=== PATIENT | male | born 1995 | race Two or more races ===

== ENCOUNTER 2022-03-06 17:00 | Emergency (ER) | payer SELFPAY ==
[~2022-03-06] VITALS: Ht 167.6 cm; Wt 81.8 kg
[2022-03-06 20:35] VITALS: BP 132/71
== END 2022-03-06 20:45 | disposition home or self-care (01) ==
LOC: EMS 17:07
DX: T18.9XXA Foreign body of alimentary tract, part unspecified, initial encounter (principal); F10.20 Alcohol dependence, uncomplicated; F17.210 Nicotine dependence, cigarettes, uncomplicated; X58.XXXA Exposure to other specified factors, initial encounter; Y93.89 Activity, other specified; Y92.89 Other specified places as the place of occurrence of the external cause; Y99.8 Other external cause status
CPT/HCPCS: 70490; 99284; Z7502

== ENCOUNTER 2023-12-25 12:35 | Emergency (ER) | payer MEDICAID ==
[~2023-12-25] VITALS: Ht 165.1 cm; Wt 79.5 kg
[2023-12-25 12:47] VITALS: TEMP 98
[2023-12-25] MEDS: CEPHALEXIN MONOHYDRATE 500 MG CAPSULE PO ONE (13:22)
[2023-12-25] MEDS: IBUPROFEN 600 MG TABLET PO ONE (13:22)
[2023-12-25] MEDS: ACETAMINOPHEN 500 MG TABLET PO ONE (13:22)
[2023-12-25] MEDS ORDERED: IBUP-1554 PO (14:01)
[2023-12-25] MEDS ORDERED: CEPH-558 PO (14:01)
[2023-12-25] MEDS ORDERED: BACI28.410 TP (14:01)
[2023-12-25] MEDS ORDERED: ACET-66 PO (14:01)
[2023-12-25] MEDS: BACITRACIN 0.9 GM PACKET OINTMENT TP ONE (14:06)
[2023-12-25 14:59] VITALS: BP 127/75; PULSE 71; RESP 16; O2SAT 100
== END 2023-12-25 15:03 | disposition home or self-care (01) ==
LOC: EMS 12:35
DX: S61.431A Puncture wound without foreign body of right hand, initial encounter (principal); F17.210 Nicotine dependence, cigarettes, uncomplicated; W31.0XXA Contact with mining and earth-drilling machinery, initial encounter; Y93.89 Activity, other specified; Y92.89 Other specified places as the place of occurrence of the external cause; Y99.8 Other external cause status
CPT/HCPCS: 99284; 73130-TC; Z7502; Z7610